=== PATIENT | female | born 1980 | race Caucasian/White ===

== ENCOUNTER → 2024-02-01 | Outpatient (CLI) | payer OTHER ==
--- NOTE | 2024-02-03 14:59 | MM ---
Reason for Exam: Screening (asymptomatic). Baseline mammogram. Patient History: Menarche at age 14. First Full-Term at age 25. Patient used Hormonal Contraceptives for 10 years. Last menstrual period: 01/17/2024 Risk Values: Pippa 5 year model risk: 0.5%. NCI Lifetime model risk: 9.0%. Prior Study Comparison: Patient's first Mammogram. No prior studies available for comparison. Tissue Density: There are scattered areas of fibroglandular density. Findings: Analyzed By CAD. Lobulated nodule at the left axillary tail probably a lymph node. Spot compression recommended to ensure normal morphologic appearance. Otherwise, no suspicious microcalcification or other discrete abnormality is seen. Overall Assessment: Incomplete: need additional imaging evaluation, BI-RAD 0 Management: Special View Mammogram of the left breast. [facility] will attempt to contact patient to return for supplemental views and ultrasound if indicated. [facility], , 02/03/2024 2:56 PM. Electronically signed and approved by: Qasim Folyd M.D. Radiologist
== END | disposition home or self-care (01) ==
LOC: RADMAMWWP 08:53
PROVIDERS: ATTEND Obstetrics & Gynecology
DX: Z12.31 Encounter for screening mammogram for malignant neoplasm of breast (principal); R92.323 Mammographic fibroglandular density, bilateral breasts
CPT/HCPCS: 77067

== ENCOUNTER → 2024-02-10 | Outpatient (CLI) | payer OTHER ==
--- NOTE | 2024-02-10 18:47 | XR ---
EXAMINATION TYPE: XR lumbar spine 2 or 3V DATE OF EXAM: 02/10/2024 6:22 PM CLINICAL INDICATION:Female, 43 years old with history of SLIP AND FALL ON ICE S13.4XXA G44.311 S33.5X XA; PHH COMPARISON: None TECHNIQUE: XR lumbar spine 2 or 3V - Frontal, lateral and coned in L5-S1 lateral views of the spine. FINDINGS: There is some irregularity suggested along the lower lumbar spine superior endplates most s pecifically at L4 and L5. Vertebral body heights are otherwise preserved. There is mild degenerative changes. Vertebral bodies are within normal alignment. Nonspecific nonobstructive bowel gas pattern i s incidentally noted. IMPRESSION: 1. Subtle superior endplate deformities are suggested in the lower lumbar spine which may relate to c ompression fractures. Correlate with point tenderness. CT lumbar spine would be able to characterize these findings better. 2. Mild multilevel disc degeneration. [facility], , 02/10/2024 6:45 PM
--- NOTE | 2024-02-10 19:19 | CT ---
EXAMINATION TYPE: CT brain wo con CT DLP: 1064 mGycm, Automated exposure control for dose reduction was used. DATE OF EXAM: 02/10/2024 6:32 PM COMPARISON: CT C-spine from same day. CLINICAL INDICATION:Female, 43 years old with history of SLIP AND FALL ON ICE S13.4XXA G44.311 S33.5X XA, slipped on ice/hit head and tweaked neck TECHNIQUE: Brain: Axial CT images of the brain were obtained with coronal and sagittal reformats created and rev iewed. Contrast used: None. Oral contrast used: None. FINDINGS: Brain: Extra-axial spaces: No abnormal extra-axial fluid collections. Ventricular system: Within normal limits Cerebral parenchyma: No acute intraparenchymal hemorrhage or mass effect. The rutledge-white junction is well differentiated. Cerebellum: Unremarkable. Mass effect: No evidence of midline shift. Intracranial vasculature: unremarkable Soft tissues: Normal. Calvarium/osseous structures: No depressed skull fracture. Paranasal sinuses and mastoid air cells: Mild scattered paranasal sinus disease. Visualized orbits: Orbital contents are intact. IMPRESSION: No acute intracranial process. [facility], , 02/10/2024 7:16 PM
--- NOTE | 2024-02-10 19:24 | CT ---
EXAMINATION TYPE: CT cervical spine wo con CT DLP: 398 mGycm, Automated exposure control for dose reduction was used. DATE OF EXAM: 02/10/2024 6:32 PM COMPARISON: CT head from the same day. CLINICAL INDICATION:Female, 43 years old with history of SLIP AND FALL ON ICE S13.4XXA G44.311 S33.5X XA; PHH, slipped on ice/hit head and tweaked neck TECHNIQUE: Axial CT images from the skull base to the inferior aspect of T2 we obtained without intra venous contrast. Coronal and sagittal reformatted images were also reviewed. Contrast used: mL of , (if blank None) Oral contrast used: (if blank None) FINDINGS: Fracture: No acute fractures. Osseous structures: Mild degenerative changes of the spine. Vertebral alignment: Alignment within normal limits. Spinal canal/Neural Foramina: No evidence of significant spinal canal narrowing. No evidence for sign ificant neural foraminal stenosis. Neck soft tissues: Prevertebral soft tissues are within normal limits. There are multiple nonenlarged lymph nodes seen bilaterally likely reactive in nature. Other: The airway is patent. The lung apices are clear. IMPRESSION: 1. No evidence of acute cervical spine fracture. 2. Mild multilevel degenerative disc disease. [facility], , 02/10/2024 7:21 PM
== END | disposition home or self-care (01) ==
LOC: RADCTMAIN 17:44
PROVIDERS: ATTEND Emergency Medicine
DX: S13.4XXA Sprain of ligaments of cervical spine, initial encounter (principal); S09.90XA Unspecified injury of head, initial encounter; M51.379 Other intervertebral disc degeneration, lumbosacral region without mention of lumbar back pain or lower extremity pain; M50.30 Other cervical disc degeneration, unspecified cervical region; G44.311 Acute post-traumatic headache, intractable; W00.0XXA Fall on same level due to ice and snow, initial encounter
CPT/HCPCS: 70450; 72100; 72125

== ENCOUNTER → 2024-02-13 | Outpatient (CLI) | payer OTHER ==
--- NOTE | 2024-02-13 12:06 | CT ---
EXAMINATION TYPE: CT lumbar spine wo con DATE OF EXAM: 02/13/2024 11:46 AM COMPARISON: None CLINICAL INDICATION: Female, 43 years old with history of S33.5XXA slip and fall; PHH, low back pain following fall TECHNIQUE: Unenhanced CT of the lumbar spine was performed. Bone and soft tissue window settings are submitted as well as coronal and sagittal reconstructions. CT DLP: 928 mGycm Automated exposure control for dose reduction was used. FINDINGS: Multilevel spurring with multilevel mild degenerative disc disease and Schmorl's nodes. Sev ere degenerative disc disease L4-L5. Prominent Schmorl's node. Vacuum change of the bilateral SI join ts. Punctate 1 mm upper pole left renal calculus. L1-L2: Normal disc space height. No disc herniation protrusion or central stenosis. No facet joint arthropathy. No evidence for foraminal encroachment. L2-L3: Normal disc space height. No disc herniation protrusion or central stenosis. No facet joint arthropathy. No evidence for foraminal encroachment. L3-L4: Circumferential disc bulging with facet arthropathy and ligamentum flavum result in mild bilat eral foraminal encroachment. Mild canal stenosis. L4-L5: Broad-based disc protrusion with facet arthropathy and hypertrophic change of the ligamentum f lavum results in moderate canal stenosis and bilateral foraminal encroachment. L5-S1: Normal disc space height. No disc herniation protrusion or central stenosis. No facet joint arthropathy. No evidence for foraminal encroachment. IMPRESSION: 1. No acute fracture. 2. Multilevel degenerative disc disease most marked at L4-L5 3. Canal stenosis L3-4 and L4-5 with bilateral foraminal encroachment. Recommend follow-up MRI. [facility], , 02/13/2024 12:04 PM
== END | disposition home or self-care (01) ==
LOC: RADCTMAIN 11:10
PROVIDERS: ATTEND Emergency Medicine
DX: S33.5XXA Sprain of ligaments of lumbar spine, initial encounter (principal); M48.061 Spinal stenosis, lumbar region without neurogenic claudication
CPT/HCPCS: 72131

== ENCOUNTER → 2024-02-14 | Outpatient (CLI) | payer OTHER ==
--- NOTE | 2024-02-14 09:32 | MM ---
Reason for Exam: Additional evaluation requested from abnormal screening. Last screening mammogram was performed less than 1 month ago. Patient History: Menarche at age 14. First Full-Term at age 25. Patient used Hormonal Contraceptives for 10 year. Risk Values: Pippa 5 year model risk: 0.5%. NCI Lifetime model risk: 9.0%. Prior Study Comparison: 02/01/2024 Bilateral MG screening mammo w CAD, [facility]. Tissue Density: Left: There are scattered areas of fibroglandular density. Findings: Analyzed By CAD. There is persistent nodularity within the upper outer left breast likely is lymph node. Ultrasound is recommended for confirmation. No suspicious groups of microcalcifications, spiculated or lobular masses, architectural distortion or other secondary signs of malignancy are mammographically apparent. Overall Assessment: Incomplete: need additional imaging evaluation, BI-RAD 0 Management: Diagnostic Breast Ultrasound of the left breast. A negative mammogram report should not preclude additional follow up of suspicious palpable abnormalities. Patient should continue monthly self breast exam. A clinical breast exam by your physician is recommended on an annual basis and results should be correlated with mammographic findings. Note on Pippa scores and lifetime risk: 1. A Pippa score greater than 3% is considered moderate risk. If this is the case, consider specialist referral to assess eligibility for a risk reducing agent. 2. If overall lifetime risk for the development of breast cancer is 20% or higher, the patient may qualify for future screening with alternating mammogram and breast MRI. [facility], , 02/14/2024 9:30 AM. Electronically signed and approved by: Tonio Penn D.O. Radiologis
== END | disposition home or self-care (01) ==
LOC: RADMAMWWP 08:37
PROVIDERS: ATTEND Obstetrics & Gynecology
DX: R92.8 Other abnormal and inconclusive findings on diagnostic imaging of breast (principal); R92.322 Mammographic fibroglandular density, left breast
CPT/HCPCS: 77061; 77065

== ENCOUNTER → 2024-02-21 | Outpatient (CLI) | payer OTHER ==
--- NOTE | 2024-02-21 18:41 | MR ---
INDICATION: Patient age:Female; 43 years old; Reason for study: S33.5XXD SPRAIN OF LIGAMENTS OF LUMBAR SPINE, SUBS; PHH. COMPARISONS: CT lumbar spine 02/13/2024, lumbar spine radiograph 02/10/2024. TECHNIQUE: Multi planar, multi sequence imaging was performed utilizing: T1-weighted, T2-weighted, a nd turbo inversion recovery imaging of the lumbar spine. The patient was not given contrast. FINDINGS: The lumbar vertebral bodies do have preserved heights and alignment. Multilevel disc chung ccation is present. Prominent disc height loss at L4-L5. The conus medullaris and the distal spinal c ord do appear unremarkable with regards to their signal intensity and morphology. Multilevel Schmorl' s nodes. Type II Modic changes surrounding the L4-L5 disc. L1-L2: No significant disc pathology is identified. The spinal canal and neural foramen are patent. L2-L3: Anterior disc fissure and protrusion with increased STIR signal. Broad-based disc bulge is id entified. There is mild effacement of the anterior thecal sac. Moderate bilateral neural foraminal st enosis. L3-L4: Broad-based disc bulge is identified with associated enlargement of the facet joints. There i s mild effacement of the anterior thecal sac. Mild bilateral neural foraminal stenosis. L4-L5: Broad-based disc bulge is identified. There is mild effacement of the anterior thecal sac. Mo derate bilateral neural foraminal stenosis. L5-S1: The intervertebral disc appears round on its contour posteriorly without significant mass eff ect upon the thecal sac. Facet joints are enlarged. Neural canals do remain patent. Other significant findings: None. IMPRESSION: 1. Acute L2-L3 anterior disc protrusion with annular fissure and surrounding edema. 2. Multilevel disc degeneration as described above. Most pronounced from L2 through L5. [facility], , 02/21/2024 6:39 PM
== END | disposition home or self-care (01) ==
LOC: RADMRIMAIN 17:10
PROVIDERS: ATTEND Emergency Medicine
DX: S13.4XXD Sprain of ligaments of cervical spine, subsequent encounter (principal); S60.229D Contusion of unspecified hand, subsequent encounter; G44.311 Acute post-traumatic headache, intractable; M51.26 Other intervertebral disc displacement, lumbar region; M51.369 Other intervertebral disc degeneration, lumbar region without mention of lumbar back pain or lower extremity pain; R60.9 Edema, unspecified; M99.73 Connective tissue and disc stenosis of intervertebral foramina of lumbar region; X58.XXXD Exposure to other specified factors, subsequent encounter
CPT/HCPCS: 72148

== ENCOUNTER → 2024-02-27 | Outpatient (CLI) | payer OTHER ==
--- NOTE | 2024-02-27 13:24 | XR ---
EXAMINATION TYPE: XR knee complete bilateral DATE OF EXAM: 02/27/2024 1:17 PM COMPARISON: None CLINICAL INDICATION: Female, 43 years old with history of S80.01XD, S80.02XD; PHH, pain TECHNIQUE: XR knee complete bilateral 3 views submitted for each knee. FINDINGS: Right: No evidence of any acute osseous pathology, soft tissue swelling, or joint effusion is noted. Left: No evidence of any acute osseous pathology, soft tissue swelling, or joint effusion is noted. IMPRESSION: 1. No acute osseous pathology. 2. Mild tricompartmental osteoarthritic changes bilaterally. [facility], , 02/27/2024 1:21 PM
== END | disposition home or self-care (01) ==
LOC: RADXRMAIN 12:59
PROVIDERS: ATTEND Emergency Medicine
DX: S80.02XD Contusion of left knee, subsequent encounter (principal); S80.01XD Contusion of right knee, subsequent encounter; M19.90 Unspecified osteoarthritis, unspecified site